=== PATIENT | male | born 1975 | race Caucasian/White ===

== ENCOUNTER 2023-03-29 05:17 | Day surgery (SDC) | payer OTHER, SELFPAY ==
[2023-03-18 11:15] VITALS: BMI 29.9
--- NOTE | 2023-03-28 13:04 | P.PNAN_ITS ---
Anes - Initial Pre Proc Eval Procedure: Operation Date: 03/29/23 08:30 Proposed Procedures p Screening Colonoscopy - Jaime Tinajero MD Date/Time: 03/28/23 13:04 Surgeon: Jaime Tinajero MD Pre Op Diagnosis: neoplasm screening Patient Data Age: 48 Gender: M Height: 1.83 m Weight: 100 kg Allergies Allergy/AdvReac Type Severity Reaction Status Date / Time No Known Allergies Allergy Verified 03/29/23 07:23 Home Medications Medication Instructions Recorded Confirmed Type Prevagen 1 tab-cap PO DAILY 03/18/23 03/29/23 History amlodipine 10 mg tablet 10 mg PO DAILY 03/18/23 03/29/23 History atorvastatin 10 mg tablet 10 mg PO DAILY 03/18/23 03/29/23 History metformin 500 mg tablet,extended 1,000 mg PO BID 03/18/23 03/29/23 History release 24 hr multivit with minerals-iron 18 1 tablet PO DAILY 03/18/23 03/29/23 History mg-folic ac 400 mcg-vit K 25 mcg tablet (Adults Multivitamin) olmesartan 40 1 tablet PO DAILY 03/18/23 03/29/23 History mg-hydrochlorothiazide 25 mg tablet omeprazole 20 mg capsule,delayed 20 mg PO DAILY 03/18/23 03/29/23 History release Patient hx anesthesia problems: none Family hx anesthesia problems: none Results Review: All pre-operative results and documents have been reviewed as part of the pre- operative evaluation. [facility]LY [facility] Past Medical History Medical History (Updated 03/28/23 @ 15:14 by Jaime Tinajero MD) Diabetes type 2, controlled GERD (gastroesophageal reflux disease) Hypertension JEN (obstructive sleep apnea) Social History Social History Living arrangements: with family Spiritual care concerns: No Anes - Eval Final PreProcedure Day of Procedure 03/28/23 13:04 Patient weight: overweight Heart: regular rate and rhythm Lungs: clear to auscultation Airway: Mallampati scale class II Neurological: alert and oriented Last oral intake: >/= 8 hours ASA classification: III Emergent: no Anesthetic plan: proceed Anesthesia type and monitoring: general GIVS and standard monitoring Results Review: All pre-operative results and documents have been reviewed as part of the pre- operative evaluation. Informed Consent: The patient's anesthetic plan and its attendant risks and benefits were discussed with the patient/family/POA. Questions were solicited and answers provided to the satisfaction of the patient/family/POA.
--- NOTE | 2023-03-28 15:13 | P.HP_ITS ---
History of Present Illness History of Present Illness Consent: Risks, benefits, and alternatives have been discussed and questions answered. Patient agrees to proceed with procedure. Chief complaint: neoplasm screening Narrative: Daniel Pino is a 48 year old male who is referred for colon cancer screening. Review of Systems Review of Systems: All systems reviewed & are unremarkable except as noted in HPI and below PMFSH Past Medical History Medical History Diabetes type 2, controlled GERD (gastroesophageal reflux disease) Hypertension JEN (obstructive sleep apnea) Social History Social History Living arrangements: with family Spiritual care concerns: No Meds Home Medications and Allergies Home Medications Medication Instructions Recorded Confirmed Type Prevagen 1 tab-cap PO DAILY 03/18/23 03/29/23 History amlodipine 10 mg tablet 10 mg PO DAILY 03/18/23 03/29/23 History atorvastatin 10 mg tablet 10 mg PO DAILY 03/18/23 03/29/23 History metformin 500 mg tablet,extended 1,000 mg PO BID 03/18/23 03/29/23 History release 24 hr multivit with minerals-iron 18 1 tablet PO DAILY 03/18/23 03/29/23 History mg-folic ac 400 mcg-vit K 25 mcg tablet (Adults Multivitamin) olmesartan 40 1 tablet PO DAILY 03/18/23 03/29/23 History mg-hydrochlorothiazide 25 mg tablet omeprazole 20 mg capsule,delayed 20 mg PO DAILY 03/18/23 03/29/23 History release Allergies Allergy/AdvReac Type Severity Reaction Status Date / Time No Known Allergies Allergy Verified 03/29/23 07:23 Exam Const: General: alert Orientation/consciousness: patient oriented x3 Oth er: slightly clammy as he had recently had a syncopal episode. Resp: Auscultation: clear to auscultation bilaterally Cardio: Rhythm: regular rhythm GI: GI Palp: Yes Soft to palpation and No Tenderness to palpation present (GI) Neuro: General: patient oriented x3 Assessment and Plan Assessment and plan (1) Colon cancer screening: Code(s): Z12.11 - Encounter for screening for malignant neoplasm of colon Status: Acute Assessment and Plan: Colonoscopy with possible biopsy or polypectomy or cautery or injection of substances.
[2023-03-29 07:24] VITALS: BP 141/76; PULSE 72; RESP 16; TEMP 36.8; O2SAT 99; BMI 29.3
[2023-03-29 07:30] LABS: Glucose Point of Care 142 mg/dl (65-105)
[2023-03-29] MEDS: LACTATED RINGERS 1,000 ML 150 ML IV CONT (07:41)
[2023-03-29] MEDS: SIMETHICONE ORAL SUSPENSION 20 MG/0.3 ML 30 ML BOTTLE 0.6 ML IRRIGATION (08:01)
[2023-03-29 08:05] VITALS: BP 92/65; PULSE 75; RESP 19; O2SAT 99
[2023-03-29 08:15] VITALS: BP 117/79; PULSE 69; RESP 20; O2SAT 100
[2023-03-29 08:25] VITALS: BP 130/94; PULSE 77; RESP 23; O2SAT 100
== END 2023-03-29 08:35 | disposition home or self-care (01) ==
PROVIDERS: PCP Internal Medicine; Visit Provider Internal Medicine Gastroenterology
PROC: 0DJD8ZZ Inspection of Lower Intestinal Tract, Via Natural or Artificial Opening Endoscopic (ICD-10-PCS; CPT 45378; principal; 2023-03-29 08:30)
DX: Z12.11 Encounter for screening for malignant neoplasm of colon (principal); E11.9 Type 2 diabetes mellitus without complications; I10 Essential (primary) hypertension; G47.33 Obstructive sleep apnea (adult) (pediatric); K21.9 Gastro-esophageal reflux disease without esophagitis; Z79.84 Long term (current) use of oral hypoglycemic drugs
CPT/HCPCS: 45378; 82948; J2704; J7120